=== PATIENT | male | born 1950 | race Caucasian/White ===

== ENCOUNTER 2025-03-26 07:52 | Outpatient (OUT) | payer MEDICARE, SELFPAY ==
--- OUTSIDE RECORDS SUMMARY | 2025-03-21 09:30 | XMS_ITS | Encounter Summary ---
Author Organization [facility] Address [address] [place] [address] Care Team Providers Care Woodworking Machine Operator Name Role Phone Justo Jones DO Primary Care Provider + [phone] Clive Chun MD Unavailable [phone] Erickson Mohan MD Unavailable [phone] Reason for Referral * Imaging (Routine) - Pending ReviewSpecialtyDiagnoses / ProceduresReferred By ContactReferred To ContactRadiology Diagnoses Former smoker Procedures CT lung screening low dose Nani Byrd NP [address] [place] [address] Phone: tel: fax: [facility] [address] [facility] [address] Phone: tel: fax: Referral IDStatusReasonStart DateExpiration DateVisits RequestedVisits [id number] [id number]/ Reason for Visit * ReasonComments6 Month Office Visit Encounter Details DateTypeDepartmentCare Team (Latest Contact Info)Euyjaujyqzz58/05/2025 9:30 AM ESTOffice Visit [facility] [address] [place] [phone] Nani Byrd NP [address] [place] [address] Mixed hyperlipidemia (Primary Dx); PAF (paroxysmal atrial fibrillation) (HCC); Benign prostatic hyperplasia without urinary obstruction; Former smoker; Essential hypertension; Hypovitaminosis D; Agatston coronary artery calcium score between 200 and 399; Person consulting for explanation of examination or test finding; Adult BMI 31.0-31.9 kg/sq m; JUDD (obstructive sleep apnea) Social History Tobacco UseTypesPacks/DayYears UsedDateSmoking Tobacco: XupupyOxuwaeyatt117.9 Started: 1991Smokeless Tobacco: Never Tobacco Cessation:Counseling Given: Not Answered Comments:Heavy cigarette smoker 20-39 cigs/day Alcohol UseStandard Drinks/WeekCommentsYes1 (1 standard drink = 0.6 oz pure alcohol)caffeine intake : 2-3 cups per dayAUDIT-CAnswerDate RecordedQ1: How often do you have a drink containing alcohol?2-3 times a week03/03/2024Q2: How many drinks containing alcohol do you have on a typical day when you are drinking?1 or Frequency of Binge DrinkingNot on file03/03/2024HQ-2 AnswerDate RecordedPatient Health Questionnaire-2 Sgqub707Sex and Gender InformationValueDate RecordedSex Assigned at BirthNot on fileLegal SexMale 07/29/2022 8:15 PM EDTGender IdentityNot on fileSexual OrientationNot on file 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 ATTENTION: [employer] Policy Update - Effective 10/18/24 Beginning today, our nursing team will review [employer] messages twice daily and help determine the best next steps before involving your provider. If your message requires more than a quick, simple response, a nurse will follow up to decide whether an in-person appointment is needed or if your question can be handled through secure messaging. Please note: Some more detailed or complex medical questions may result in a charge, similar to a brief office visit, if handled via [employer]. We want you to feel informed and confident when using [employer], so here are a few examples to clarify: ? No Charge (Nonbillable Messages): Medication refill requests Lab Requests Sending in provider requested data/follow-ups from visit (e.g., blood pressure, blood sugar, symptoms after treatment, report medication response) Quick questions that can be answered in a sentence or two ?? May Result in a Charge: Questions about a new medical issue that hasn???t been evaluated in the past 7 days Messages that require significant provider time, medical decision-making, or new prescriptions/orders We???re committed to keeping communication open, clear, and helpful, while ensuring you get the right care at the right time. You will be notified prior to any communication charge. Thank you for partnering with us in your health! documented in this encounter Plan of Treatment DateTypeDepartmentCare Team (Latest Contact Info)Yppxydnpaxx55/08/2026 10:00 AM EDTOffice Visit [facility] [place] [facility] [address] [place] [address] Justo Jones DO [address] [place] [address] NameTypePriorityAssociated DiagnosesOrder ScheduleCT lung screening low dose ImagingRoutine Former smoker Expected: 03/21/2025, Expires: 6CBC and differentialLabRoutine PAF (paroxysmal atrial fibrillation) (HCC) Essential hypertension Expected: 05/17/2025 (Approximate), Expires: 08/15/2025omprehensive metabolic panelLabRoutine Essential hypertension Expected: 05/17/2025 (Approximate), Expires: 08/15/2025Vitamin D 25 hydroxy TotalLabRoutine Hypovitaminosis D Expected: 05/17/2025, Expires: 08/15/2025Lipid panelLabRoutine Mixed hyperlipidemia Essential hypertension Agatston coronary artery calcium score between 200 and 399 Expected: 05/17/2025 (Approximate), Expires: 08/15/2025POLIPOPROTEIN BLab Routine Mixed hyperlipidemia Agatston coronary artery calcium score between 200 and 399 Expected: 05/17/2025 (Approximate), Expires: 08/15/2025Microalbumin / creatinine urine ratioLabRoutine Essential hypertension Expected: 05/17/2025 (Approximate), Expires: 08/15/2025documented as of this encounter Visit Diagnoses Diagnosis Mixed hyperlipidemia- Primary PAF (paroxysmal atrial fibrillation) (HCC) Atrial fibrillation Benign prostatic hyperplasia without urinary obstruction Former smoker Personal history of tobacco use, presenting hazards to health Essential hypertension Unspecified essential hypertension Hypovitaminosis D Unspecified vitamin D deficiency Agatston coronary artery calcium score between 200 and 399 Person consulting for explanation of examination or test finding Adult BMI 31.0-31.9 kg/sq m Body Mass Index 31.0-31.9, adult JUDD (obstructive sleep apnea) Obstructive sleep apnea (adult) (pediatric) documented in this encounter Additional Health Concerns AssessmentNoted TimePHQ-9 Depression Total Score: 9:00 AM EDT documented as of this encounter Care Teams Team MemberRelationshipSpecialtyStart DateEnd Date Justo Jones DO [address] [place] [address] PCP - GeneralInternal Medicine11/24/22 Clive Chun MD [address] [facility] [address] [place] [address] Referring PhysicianCardiology08/27/23 Erickson Mohan MD [address] [place] [address] Referring PhysicianUrology08/27/23documented as of this encounter
--- OUTSIDE RECORDS SUMMARY | 2025-03-26 07:59 | XMS_ITS | Encounter Summary ---
Author Organization [facility] Address [address] [place] [address] Care Team Providers Care Business Process Engineer Name Role Phone Justo Jones DO Primary Care Provider + [phone] Clive Chun MD Unavailable [phone] Erickson Mohan MD Unavailable [phone] Encounter Details DateTypeDepartmentCare Team (Latest Contact Info)Prrejskdnsq62/05/2025Travel Social History Tobacco UseTypesPacks/DayYears UsedDateSmoking Tobacco: AnjyrmUiecfbnigo040.9 Started: 1991Smokeless Tobacco: Never Comments:Heavy cigarette smo ker 20-39 cigs/day Alcohol UseStandard Drinks/WeekCommentsYes1 (1 standard drink = 0.6 oz pure alcohol)caffeine intake : 2-3 cups per dayAUDIT-CAnswerDate RecordedQ1: How often do you have a drink containing alcohol?2-3 times a week03/03/2024Q2: How many drinks containing alcohol do you have on a typical day when you are drinking?1 or Frequency of Binge DrinkingNot on file03/03/2024HQ-2 AnswerDate RecordedPatient Health Questionnaire-2 Wroma822Sex and Gender InformationValueDate RecordedSex Assigned at BirthNot on fileLegal SexMale 07/29/2022 8:15 PM EDTGender IdentityNot on fileSexual OrientationNot on file 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 on 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 on fileNot on filedocumented as of this encounter Plan of Treatment DateTypeDepartmentCare Team (Latest Contact Info)Kiwkkjgtrjd09/08/2026 10:00 AM EDTOffice Visit [facility] [address] [place] [phone] Justo Jones DO [address] [place] [address] documented as of this encounter Visit Diagnoses Not on filedocumented in this encounter Additional Health Concerns AssessmentNoted TimePHQ-9 Depression Total Score: 9:00 AM EDT documented as of this encounter Care Teams Team MemberRelationshipSpecialtyStart DateEnd Date Justo Jones DO [address] [facility] [address] [place] [address] PCP - GeneralInternal Medicine11/24/22 Clive Chun MD [address] [facility] [address] [place] [address] Referring PhysicianCardiology08/27/23 Erickson Mohan MD [address] [facility] [place] [address] Referring PhysicianUrology08/27/23documented as of this encounter
--- OUTSIDE RECORDS SUMMARY | 2025-03-26 07:59 | XMS_ITS | Clinical Summary ---
Author Organization [facility] Address [address] [place] [address] Care Team Providers Care Clinic Lead Name Role Phone Justo Jones Primary Care Provider Allergies No known active allergies Medications MedicationSigDispense QuantityRefillsLast FilledStart DateEnd DateStatus atorvastatin (LIPITOR) 10 mg tablet Take 10 mg by mouth once daily.05/11/2019Active hydrOXYzine pamoate (VISTARIL) 25 mg capsule Take 25 mg by mouth daily at bedtime.12/05/2023ctive rivaroxaban (XARELTO) 20 mg tablet Take 20 mg by mouth once daily.05/11/2019Active finasteride (PROSCAR) 5 mg tablet Take 5 mg by mouth.05/13/2020Active flecainide (TAMBOCOR) 50 mg tablet Take 50 mg by mouth.05/13/2020Active tamsulosin (FLOMAX) 0.4 mg Take 0.4 mg by mouth every 12 hours.05/13/2020Active triamcinolone acetonide (KENALOG) 0.1 % cream Apply 1 application to affected area two times a day. May use up to 5 days, then break for 2 days. Repeat cycle as needed. 453.6 g ctive cetirizine (ZYRTEC) 10 mg tablet Take 2 tablets by mouth every afternoon. 60 tablet 01/05/2024ctive Social History Tobacco UseTypesPacks/DayYears UsedDateSmoking Tobacco: Never AssessedArea Deprivation IndexAnswerDate RecordedNational Score (1-100), lower number is lower qglu821012/24/2023State Score (1-10), lower number is lower xwfw160 Data from: https://www.neighborhoodatlas.medicine.[facility].edu/. Last address used for cadhruppkoj[address]12/24/2023Sex and Gender InformationValue Date RecordedSex Assigned at BirthNot on fileLegal GzuXkcu4510/27/2022 11:02 AM EDTGender IdentityNot on fileSexual OrientationNot on file Plan of Treatment Health MaintenanceDue DateLast DoneCommentsAnxiety Rpluboxvk91/07/1969Depression Iaozegxcy24/07/1969Hepatitis C Xmcqsvzsn04/07/1969DTaP,Tdap,Td Vaccine (1 - Tdap)1969Lipid Ciendilki63/07/1986CT Cckvtrsofyoz38/07/1996Colonoscopy 10/22/1995Diabetes Eqtnhtnna63/07/1996Fecal Occult Blood10/22/1995Sigmoidoscopy 10/22/1995Cologuard (FIT-DNA)Colorectal Cancer Screening 10/25/2020dvance Directive Rzmfxeyuzu00/01/2025Medicare Advantage Annual Wellness Visit05/17/2024ovid-19 Vaccine ( season)2025 05/04/2023, 05/25/2022, 08/27/2021, Additional history existsInfluenza Vaccine (#1)512/, 05/25/2022, 04/16/2021, Additional history exists Pneumococcal Vaccine: 50+Qmrslmbvq85/10/2020, 09/06/2018, 10/05/2017RSV Vaccine Yikyuumvp76/09/2024Shingrix QjkbonvRxpbptxvs23/09/2024, 05/11/2023 Insurance Care Teams Team MemberRelationshipSpecialtyStart DateEnd Date Justo Jones DO [address] [facility] [address] [place] [address] PCP - GeneralInternal Medicine12/21/23
--- OUTSIDE RECORDS SUMMARY | 2025-03-26 07:59 | XMS_ITS | Clinical Summary ---
Author Organization [facility] Address [address] [place] [address] Care Team Providers Care Cfo Name Role Phone Keny Carney DO Primary Care Provider [phone] Allergies No known active allergies Medications MedicationSigDispense QuantityRefillsLast FilledStart DateEnd DateStatus traMADol (ULTRAM) 50 mg tablet Take 1 tablet (50 mg total) by mouth every 6 (six) hours as needed for pain. 15 tablet ctive Social History Tobacco UseTypesPacks/DayYears UsedDateSmoking Tobacco: FormerAlcohol Use Standard Drinks/WeekCommentsYes0 (1 standard drink = 0.6 oz pure alcohol) occassionallySex and Gender InformationValueDate RecordedSex Assigned at Not on fileLegal ZvnQhil0209/08/2013 11:12 AM EDTGender IdentityNot on fileSexual OrientationNot on file Last Filed Vital Signs Vital SignReadingTime TakenCommentsBlood Mgekpmek399/7710 1:43 AM EDT Nojaf326802/27/2015 1:43 AM XAFIghthbrwudb20.7 ??C (98.1 ??F)02/26/2015 10:43 PM EDTRespiratory Yxya8582 1:43 AM EDTOxygen Lgmystcngd02%02/27/2015 1:43 AM EDTInhaled Oxygen Concentration--Eznfit47.1 kg (218 lb 6.4 oz)02/26/2015 10:43 PM DUEBvzqkn451.3 cm (5' 11 )02/26/2015 10:43 PM EDTBody Mass Index30.46 02/26/2015 10:43 PM EDT Plan of Treatment Not on file Insurance Care Teams Team MemberRelationshipSpecialtyStart DateEnd Date Keny Carney DO [address] [place] [phone] PCP - Nkqqyif71/2/12
--- OUTSIDE RECORDS SUMMARY | 2025-03-26 07:59 | XMS_ITS | Clinical Summary ---
Author Organization [facility] Address [address] [place] [address] Phone Care Team Providers Care Professor Of Environmental Science Name Role Phone Justo Jones DO Primary Care Provider Allergies No known active allergies Medications MedicationSigDispense QuantityRefillsLast FilledStart DateEnd DateStatus flecainide (Tambocor) 50 mg tablet Indications:Persistent atrial fibrillation (Multi)TAKE 1 TABLET BY MOUTH EVERY 12 HOURS 180 tablet 3Active finasteride (Proscar) 5 mg tablet Take 1 tablet (5 mg) by mouth once daily.Active tamsulosin (Flomax) 0.4 mg 24 hr capsule Take 1 capsule (0.4 mg) by mouth once daily.Active multivitamin tablet Take 1 tablet by mouth once daily.Active atorvastatin (Lipitor) 10 mg tablet Indications:Mixed hyperlipidemiaTAKE 1 TABLET BY MOUTH ONCE DAILY AT BEDTIME 90 tablet 5Active rivaroxaban (Xarelto) 20 mg tablet Indications:Persistent atrial fibrillation (Multi)Take 1 tablet (20 mg) by mouth once daily. 90 tablet 5Active Active Problems ProblemNoted DateDiagnosed DateOther sleep apnea01/11/2025Never smoked tobacco 01/10/20247755Jxqywajlrsipuy29/17/2023Mild CAD04/02/2023Obesity (BMI 30-39.9) 04/02/20237814Ejythqmfovab76/17/2023ersistent atrial gmhizkrqwwxs76/17/2023Sinus webcrkencxi75/17/2023Long term current use of anticoagulant qifoopg5204/02/2023 Essential ylpinewsblfv47/17/2023 Resolved Problems ProblemNoted DateDiagnosed DateResolved DateEchocardiogram dfvoreim68/17/2023 07/12/2024 Encounters DateTypeDepartmentCare GfzzYyqwlzwtbou88/28/2025 3:00 PM EDTOffice Visit [address] [address] Clive Chun MD Persistent atrial fibrillation (Multi) (Primary Dx); Essential hypertension; Sinus bradycardia; 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; Palpitations; Mild CAD; Mixed hyperlipidemia; Obesity (BMI 30-39.9); Never smoked tobacco; Other sleep apnea Discharge Disposition: Home01/11/2025Travelfrom Last 3 Months Social History Tobacco UseTypesPacks/DayYears UsedDateSmoking Tobacco: FormerCigarettesQuit: 2004Smokeless Tobacco: Never Tobacco Cessation:Counseling Given: Not Answered Alcohol UseStandard Drinks/WeekCommentsYes0 (1 standard drink = 0.6 oz pure alcohol)socialSex and Gender InformationValueDate RecordedSex Assigned at Not on fileLegal QyxQgnk63/26/2022 8:45 PM ESTGender IdentityNot on fileSexual OrientationNot on file Last Filed Vital Signs Vital SignReadingTime TakenCommentsBlood Scuregga419/70001/11/2025 2:48 PM EDT Tdlki186801/11/2025 2:48 PM EDTTemperature--Respiratory Rate--Oxygen Saturation-- Inhaled Oxygen Concentration--Lkimma536 kg (226 lb)01/11/2025 2:48 PM EDTHeight 180.3 cm (5' 11 )01/11/2025 2:48 PM EDTBody Mass Index31.52001/11/2025 2:48 PM EDT Plan of Treatment DateTypeDepartmentCare Team (Latest Contact Info)Isooefugbre85/14/2026 3:20 PM EDTOffice Visit [address] [address] Clive Chun MD [address] [place] [address] [address] [place] [address] Health MaintenanceDue DateLast DoneCommentsCT Lvsejgpjwqeg71/07/1951FIT-DNA (Cologuard)1950FIT1950Medicare Annual Wellness Visit (AWV)1950 Guamlzabfnfkg08/07/1951MMR Vaccines (1 of 1 - Standard series)2Diabetes Eydehdqiq37/07/1969Hepatitis C Vqebffsat35/07/1969DTaP/Tdap/Td Vaccines (1 - Tdap)1972Abdominal Aortic Aneurysm (AAA) Eydzeqhns97/07/2016Influenza Vaccine (#1)/, 05/04/2023, 05/25/2022, Additional history existsCOVID-19 Vaccine ( season)/, 05/25/2022, 08/27/2021, Additional history existsLipid Panel/olonoscopy , 12/09/2017Colorectal Cancer Cvebnpmao99/26/2034Hepatitis B MdexecrhGlrkdxlzh60/31/2001, 04/19/2000, 03/12/2000Pneumococcal VaccineCompleted 03/26/2020, 09/06/2018, 10/05/2017RSV High Risk: (Elderly (60+) or Population)Cqgvbygch85/09/2024Zoster IrfkmlulLldpbshmp82/09/2024, 05/11/2023HIB VaccinesAged OutNo longer eligible based on patient's age to complete this topic HPV VaccinesAged OutNo longer eligible based on patient's age to complete this topicHepatitis A VaccinesAged OutNo longer eligible based on patient's age to complete this topicIPV VaccinesAged OutNo longer eligible based on patient's age to complete this topicMeningococcal VaccineAged OutNo longer eligible based on patient's age to complete this topicRotavirus VaccinesAged OutNo longer eligible based on patient's age to complete this topic Procedures Procedure NamePriorityDate/TimeAssociated DiagnosisCommentsECG 12-LEADRoutine 01/11/2025 3:00 PM EDT Sinus bradycardia from Last 3 Months Results * ECG 12 Lead (01/11/2025 3:00 PM EDT)Specimen (Source)Anatomical Location / LateralityCollection Method / VolumeCollection TimeReceived Time Narrative CPACS - 01/11/2025 3:14 PM EDT Mild sinus bradycardia with criteria for left hypertrophy and nonspecific ST-T changes Authorizing ProviderResult TypeResult StatusMourhaf Traboulssi MDECG ORDERABLES Final ResultPerforming OrganizationAddressCity/State/ZIP CodePhone Number CPACS from Last 3 Months Insurance Care Teams Team MemberRelationshipSpecialtyStart DateEnd Date Justo Jones DO [address] [facility] [address] [place] [address] PCP - GeneralInternal Medicine01/10/24
--- OUTSIDE RECORDS SUMMARY | 2025-03-26 07:59 | XMS_ITS | Clinical Summary ---
Author Organization [facility] Address [address] [place] [address] Care Team Providers Care Rouge Sifter And Miller Name Role Phone Justo Jones DO Primary Care Provider + [phone] Clive Chun MD Unavailable [phone] Erickson Mohan MD Unavailable [phone] Allergies No known active allergies Medications MedicationSigDispense QuantityRefillsLast FilledStart DateEnd DateStatus atorvastatin (Lipitor) 10 MG tablet Indications:Mixed hyperlipidemiaTake 1 tablet (10 mg) by mouth at bedtime 5Active finasteride (Proscar) 5 MG tablet Indications:Benign prostatic hyperplasia without urinary obstructionTake 1 tablet (5 mg) by mouth 1 (one) time each day at the same time5Active flecainide (Tambocor) 50 MG tablet Indications:PAF (paroxysmal atrial fibrillation) (HCC)Take 1 tablet (50 mg) by mouth in the morning and 1 tablet (50 mg) before bedtime.5Active rivaroxaban (Xarelto) 20 MG tablet Indications:PAF (paroxysmal atrial fibrillation) (HCC)Take 1 tablet (20 mg) by mouth in the evening. Take with meals5Active tamsulosin (Flomax) 0.4 MG 24 hr capsule Indications:Benign prostatic hyperplasia without urinary obstructionTake 2 capsules (0.8 mg) by mouth Daily5Active tamsulosin (Flomax) 0.4 MG 24 hr capsule Take 0.8 mg by mouth DailyDiscontinued(Reorder) rivaroxaban (Xarelto) 20 MG tablet Take 20 mg by mouth.Discontinued(Reorder) finasteride (Proscar) 5 MG tablet Take 5 mg by mouth 1 (one) time each day at the same time. Discontinued(Reorder) flecainide (Tambocor) 50 MG tablet Take 50 mg by mouth in the morning and 50 mg before bedtime. Discontinued(Reorder) atorvastatin (Lipitor) 10 MG tablet Take 10 mg by mouth at bedtime.Discontinued(Reorder) Active Problems ProblemNoted DateDiagnosed DateThoracic aorta qlauwypiyjlulgs67/27/2024Essential uutszydgludg00/17/2023Long term current use of anticoagulant jlopimw0004/02/2023 Avchhupxysgwgm41/17/2023ortic valve maafscpee74/11/2023enign prostatic hyperplasia without urinary uiqkfguekhc82/11/2023iastasis of rectus abdominis 11/24/2022Former phcape0411/24/2022History of chronic lung rgwmjmk1711/24/2022 History of kidney hfuabe5611/24/2022Left ventricular ubkplofiuxt18/11/2023Mixed lbdaswsnvuvbmn39/11/2023Multiple rfwcpkq4511/24/2022Obesity (BMI 30-39.9) 11/24/2022AF (paroxysmal atrial fibrillation)11/24/2022Multiple nodules of lung 11/24/2022Reactive airway hnqihwn7411/24/2022Tubular uvltfet3411/24/2022 Overview (11/15/2023): 6 in 2023 Agatston coronary artery calcium score between 200 and 4090311/23/1904 Resolved Problems ProblemNoted DateDiagnosed DateResolved DateAngiomyolipoma of zpvsai3506/12/2023 06/12/20232768Mscygupcoiprzoq11/27/202407/Mild CAD/ Persistent atrial jhlyfumvtajs96/17/202307/4248Kmptjydqp13/11/202307/ Esophageal xmxzzfrxx61Heart Hesitancy of wherluttoiv01Hip flexor mvtdbaejh83/11/2023 12/01/2023Gross ojujofvji50Kidney uhhgzz37 Wkcwhrklfvvf01ulmonary xnyahq06Olecranon bursitis of right elbow Assessment & Plan (11/24/2022 4:04 PM EDT): No systemic symptoms like fevers or chills. Reports he was given an antibiotic maybe a month ago bythe shield cleaner for concern of infection in this arm. When fluid drawn, pus appeared in addition to yellow serous fluid. He will return in 1 week for a recheck. If needs drawn off again, consider referral to an orthopedic. Current use of alf yctsolmrjlhpdmx14Hx of chronic eczema ellulitis of elbow Encounters DateTypeDepartmentCare YjdiZlbetttiokp75/05/2025 9:30 AM ESTOffice Visit [facility] [address] [place] [phone] Nani Byrd, LEO Mixed hyperlipidemia (Primary Dx); PAF (paroxysmal atrial fibrillation) (HCC); Benign prostatic hyperplasia without urinary obstruction; Former smoker; Essential hypertension; Hypovitaminosis D; Agatston coronary artery calcium score between 200 and 399; Person consulting for explanation of examination or test finding; Adult BMI 31.0-31.9 kg/sq m; JUDD (obstructive sleep apnea)03/21/20251422Acvmtu31/01/2025Orders Only [facility] [address] [place] [phone] Unallocated, Renee Phipps MD 02/13/2025Orders Only [facility] [address] [place] [phone] Unallocated, Renee Phipps MD 01/09/2025Telephone [facility] [address] [place] [address] Evangelina Sexton MA Sleep Studyfrom Last 3 Months Immunizations ImmunizationAdministration DatesNext DueABRYSVO - Respiratory syncytial virus (RSV), vaccine, bivalent, protein subunit RSV prefusion F, diluent reconstituted, 0.5 mL, PF08/24/2023Hep B, adult10/14/2000,04/19/2000,03/12/2000 Influenza, High Dose Seasonal, Preservative Free03/08/2025,03/13/2018,05/27/2017 Influenza, High-dose Seasonal, Quadrivalent, Preservative Free05/25/2022 Influenza, Seasonal, Quadrivalent, Juxbthifps37/19/2023Influenza, Unspecified 05/04/2023Influenza, injectable, quadrivalent, preservative free02/20/2020 Influenza, seasonal, ydpiyrrdvz01/01/2020,04/22/2015,04/14/2015Influenza, seasonal, injectable, preservative free02/25/2014Influenza, trivalent, vkipfjursx52/18/2024Moderna SARS-CoV-2 Syfefolkppr90/19/2021Pfizer Purple Cap SARS-CoV-2 Mzthlvkzyyh83/19/2021neumococcal Conjugate PCV Pneumococcal Polysaccharide VJFQ102005/26/2019RSV IGIV08/24/2023Zoster, Ugbrpuztfau96/09/2024,05/11/2023 Family History Medical HistoryRelationNameCommentsDementiaFatherStrokeFatherDementiaMother StrokeMotherRelationNameStatusCommentsDaughterAlive2 daughtersFatherDeceased MotherDeceasedSister2 sistersSonAlive1 sons Social History Tobacco UseTypesPacks/DayYears UsedDateSmoking Tobacco: KvhtkrWfxozjukou696.9 Started: 1991Smokeless Tobacco: Never Tobacco Cessation:Counseling Given: [...] DrinkingNot on file03/03/2024HQ-2 AnswerDate RecordedPatient Health Questionnaire-2 Lzpir116Sex and Gender InformationValueDate RecordedSex Assigned at BirthNot on fileLegal SexMale 07/29/2022 8:15 PM EDTGender IdentityNot on fileSexual OrientationNot on file 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 on fileNot on fileNot on file Last Filed Vital Signs Vital SignReadingTime TakenCommentsBlood Jyvkatpc570/7003/21/2025 8:56 AM EST Jqhzh805503/21/2025 8:56 AM ESTTemperature--Respiratory Rate--Oxygen Thutowwjjg98% 03/21/2025 8:56 AM ESTInhaled Oxygen Concentration--Mcaygi423 kg (229 lb) 03/21/2025 8:56 AM KUMHxamjk194.3 cm (5' 11 )03/21/2025 8:56 AM ESTBody Mass Index31.9403/21/2025 8:56 AM EST Plan of Treatment DateTypeDepartmentCare Team (Latest Contact Info)Qydqfehmhlf99/08/2026 10:00 AM EDTOffice Visit [facility] [address] [place] [address] Justo Jones, [address] [place] [address] Health MaintenanceDue DateLast DoneCommentsCT Asqieoyncpuz76/07/1951FIT 1950FOBT1950 6828Ikweibgzxqfod99/07/1951FIT-DNALung Cancer Screening Shared Decision Bgwovd4205/17/2025Postponed from 1950 (Other System Reasons)Medicare Annual Wellness (AWV)604/ Oytnogrliuk71/26/203406/, 12/09/2017Colorectal Cancer Kteuqyavr60/26/2034 Pneumococcal Vaccine: 65+ RnjvlPbrznsorm20/10/2020, 10/05/2017COVID-19 Vaccine Efheoamdixvb93/19/2023, 08/27/2021, 03/10/2021, Additional history exists Influenza PjpwpdeInnfuegkl88/23/2025, 03/03/2024, 05/04/2023, Additional history exists Procedures Procedure NamePriorityDate/TimeAssociated DiagnosisCommentsXR ABDOMEN 1 VIEW Puabekb2102/12/2025 1:31 PM EDTPSA, RTXHBWfgwdyz75/29/2025 10:05 AM EDTHM QUNRWXQJDBTZeeggfe93/26/2024 3:39 PM EDTfrom Last 3 Months or Most Recently Relevant to Health Maintenance Results * XR abdomen 1 view (02/12/2025 1:31 PM EDT)Anatomical RegionLateralityModality AbdomenRadiographic Imaging Narrative Authorizing ProviderResult TypeResult StatusNoms Provider Unallocated MDIMG XR PROCEDURESFinal Result * PSA (02/12/2025 10:05 AM EDT)Specimen (Source)Anatomical Location / Laterality Collection Method / VolumeCollection TimeReceived TimeBloodVenous blood specimen / Unknown Narrative Authorizing ProviderResult TypeResult StatusNoms Provider Unallocated MDLAB BLOOD ORDERABLESFinal Result * Hm Colonoscopy (11/10/2023 3:39 PM EDT)Anatomical RegionLateralityModality Other Narrative Authorizing ProviderResult TypeResult StatusUnknown Practice [facility]TENANCE Final Result from Last 3 Months or Most Recently Relevant to Health Maintenance Insurance Advance Directives * Full Code (Latest Code Status on File) Date ActivatedDate InactivatedComments09/03/2023 10:34 AM Care Teams Team MemberRelationshipSpecialtyStart DateEnd Date Justo Jones DO [address] [place] [address] PCP - GeneralInternal Medicine11/24/22 Clive Chun MD [facility] [facility] [place] [address] Referring PhysicianCardiology08/27/23 Erickson Mohan MD [address] [place] [address] Referring PhysicianUrology08/27/23
[2025-03-26 08:46] LABS: Hematocrit 41.5 % (42.0-54.0); Hemoglobin 14.5 g/dL (14.0-18.0); Immature Granulocytes Abs Auto 0.02 10^3/uL (0.00-0.03); Immature Granulocytes Pct Auto 0.4 % (0.0-0.5); Lymphocytes Absolute Auto 1.4 10^3/uL (1.2-3.8); Mean Corpuscular HGB Conc 34.9 g/dL (29.9-35.2); Mean Corpuscular Hemoglobin 31.5 pg (25.9-34.0); Mean Corpuscular Volume 90.0 fL (80.0-94.0); Platelet Count 179 10^3/uL (150-450); Red Blood Count 4.61 10^6/uL (4.70-6.10); White Blood Count 5.6 10^3/uL (4.0-11.0)
--- NOTE | 2025-03-26 08:48 | PM.PRESUREVA ---
History of Present Illness History of Present Illness Chief complaint: LEFT KIDNEY STONE Narrative: Patient presents for presurgical testing. The patient has a known left-sided kidney stone that has been monitored, and he states it doubled in size within the past year and he is now scheduled for prophylactic surgical intervention. The patient denies any urinary complaints at this time. He has no flank pain, abdominal pain, nausea, vomiting, fever, dysuria, hematuria, or any other complaints. Review of Systems ROS Narrative REVIEW OF SYSTEMS: Negative except as stated in HPI, ten or more systems reviewed. Constitutional: No fever, chills, weakness ENT: No sore throat or epistaxis Cardiovascular: No chest pain or palpitations Respiratory: No shortness of breath, cough, or wheezing Musculoskeletal: No joint pain or swelling Gastrointestinal: No abdominal pain, constipation, diarrhea, or vomiting Genitourinary: No dysuria or hematuria Neurological: No numbness, tingling, weakness, or headache Psychiatric: No mood changes PFSH PFS Medical History (Updated 03/26/25 @ 08:47 by Shayy Dean NP) Colon polyp ?K63.5 - Polyp of colon (ICD-10) BPH with obstruction/lower urinary tract symptoms ?N40.1 - Benign prostatic hyperplasia with lower urinary tract symptoms (ICD-10) ?N13.8 - Other obstructive and reflux uropathy (ICD-10) Anticoagulated ?Z79.01 - remote computer terminal operator (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) use of anticoagulants (ICD-10) Arthritis ?M19.90 - Unspecified osteoarthritis, unspecified site (ICD-10) Sleep apnea ?G47.30 - Sleep apnea, unspecified (ICD-10) Kidney stones ?N20.0 - Calculus of kidney (ICD-10) Extremity edema ?R60.0 - Localized edema (ICD-10) Atrial fibrillation ?I48.91 - Unspecified atrial fibrillation (ICD-10) History of cardioversion ?Z92.89 - Personal history of other medical treatment (ICD-10) S/P extracorporeal shock wave therapy ?Z98.890 - Other specified postprocedural states (ICD-10) Surgical History (Updated 03/26/25 @ 08:47 by Shayy Dean NP) S/P colon polypectomy ?Z98.890 - Other specified postprocedural states (ICD-10) ?Z86.0100 - Personal history of colon polyps, unspecified (ICD-10) History of colonoscopy ?Z98.890 - Other specified postprocedural states (ICD-10) S/P TURP ?Z90.79 - Acquired absence of other genital organ(s) (ICD-10) S/P ureteral stent placement ?Z96.0 - Presence of urogenital implants (ICD-10) S/P cystoscopy ?Z98.890 - Other specified postprocedural states (ICD-10) Family History (Updated 03/26/25 @ 08:33 by Shayy Dean NP) Other Family history of Alzheimer's disease Social History (Updated 03/26/25 @ 08:24 by Shayy Dean NP) Within the past year, how often did you have a drink containing alcohol: 2-3 times a week Smoking status: Former smoker Non-prescribed substance use: denies use Highest level of school completed/degree received: high school graduate Meds Home Medications and Allergies Home Medications ?Medication ?Instructions ?Recorded ?Confirmed ?Type atorvastatin 10 mg tablet 10 mg PO DAILY 03/26/25 03/26/25 History finasteride 5 mg tablet 5 mg PO DAILY 03/26/25 03/26/25 History flecainide 50 mg tablet 50 mg PO Q12H 03/26/25 03/26/25 History rivaroxaban 20 mg tablet (Xarelto) 20 mg PO DAILY 03/26/25 03/26/25 History tamsulosin 0.4 mg capsule 0.4 mg PO BID 03/26/25 03/26/25 History Allergies Allergy/AdvReac Type Severity Reaction Status Date / Time No Known Drug Allergies Allergy Verified 03/26/25 08:18 Exam Narrative Exam Narrative: Constitutional: Awake, alert, comfortable, well-appearing, nontoxic, interactive, vital signs as charted Head: Normocephalic, atraumatic Neck: Supple, normal appearance, normal range of motion, no meningeal signs, no lymphadenopathy Respiratory: No respiratory distress, breath sounds clear Cardiovascular: Regular rate and rhythm, strong and regular heart tones Abdomen: Nontender, normal bowel sounds, soft, no CVA tenderness Musculoskeletal: Normal gait, no swelling or edema Skin: No rashes or induration, no lesions, only visible skin inspected Neuro: No neurological deficits, normal sensation Psychiatric: Oriented ?3, normal affect Assessment and Plan Assessment and Plan (1) Kidney stones: Plan Cystoscopy, left retrograde, left ureteroscopy, laser, possible left stent placement scheduled with Dr. Mohan April 05, 2025.
[2025-03-26 09:09] LABS: INR 1.14; Partial Thromboplastin Time 33.7 sec (22.3-36.2); Prothrombin Time 11.9 sec (9.0-11.6)
[2025-03-26 09:49] LABS: Anion Gap 11.6; Blood Urea Nitrogen 19.0 mg/dL (7.0-18.0); Calcium 8.6 mg/dL (8.5-10.1); Carbon Dioxide 28.6 mmol/L (21.0-32.0); Chloride 105 mmol/L (98-107); Estimated GFR (African America >60 (>=60 mL/min/1.73m^2); Estimated GFR (Non-African Ame >60 (>=60 mL/min/1.73m^2); Glucose 128 mg/dL (74-106); Potassium 4.2 mmol/L (3.5-5.1); Sodium 141 mmol/L (136-145)
== END 2025-03-26 07:53 | disposition home or self-care (01) ==
LOC: PST 07:57
PROVIDERS: PCP Internal Medicine; Visit Provider Urology
DX: Z01.812 Encounter for preprocedural laboratory examination (principal); Z01.818 Encounter for other preprocedural examination; N20.0 Calculus of kidney
CPT/HCPCS: 36415; 80048; 85025; 85610; 85730; G0463

== ENCOUNTER 2025-04-05 06:51 | Day surgery (SDC) | payer MEDICARE, SELFPAY ==
[2025-03-26 08:41] VITALS: BP 148/77; PULSE 60; TEMP 36.3; O2SAT 97; BMI 31.1
[2025-04-05] VITALS (11 sets, daily range): BP systolic 108–168; BP diastolic 61–83; PULSE 50–61; TEMP 36.3–36.8; O2SAT 91–98; BMI 23.3
--- OUTSIDE RECORDS SUMMARY | 2025-04-05 06:56 | XMS_ITS | Encounter Summary ---
Author Organization [facility] Address [address] [place] [address] Phone Care Team Providers Care Car Varnisher Name Role Phone Justo Jones Primary Care Provider Reason for Visit * ReasonOnset MsxoGofniyrvBXX30/11/2025 Encounter Details DateTypeDepartmentCare Team (Latest Contact Info)Exteqdcvtyo25/11/2025Telephone [facility] [address] [address] Honey Fairchild LPN POC Social History Tobacco UseTypesPacks/DayYears UsedDateSmoking Tobacco: FormerCigarettesQuit: 2004Smokeless Tobacco: NeverAlcohol UseStandard Drinks/WeekCommentsYes0 (1 standard drink = 0.6 oz pure alcohol)socialSex and Gender InformationValueDate RecordedSex Assigned at BirthNot on fileLegal EmcWmtn38/26/2022 8:45 PM EST Gender IdentityNot on fileSexual OrientationNot on filedocumented as of this encounter Miscellaneous Notes * Telephone Encounter - Maria Eugenia Roach LPN - 04/02/2025 1:53 PM EST Phone call from Dr. Mohan office requesting POC, did not receive it before. Orders discussed verbalized understanding, orders printed and faxed. * Telephone Encounter - Mabel Mendoza LPN - 03/27/2025 1:51 PM EST Printed and faxed. Left vm with Ave at Dr. Cummins's office advising. * Telephone Encounter - Honey Fairchild LPN - 03/27/2025 10:17 AM EST Call from Ave with Dr. Mohan' office requesting cardiac clearance, and approval to proceed with laser treatment under general anesthesia for kidney stone removal at [facility]. Also requesting Xarelto hold 2-3 days prior to procedure. (P) [phone] (F) [phone] documented in this encounter Plan of Treatment DateTypeDepartmentCare Team (Latest Contact Info)Wbyicurmyde07/14/2026 3:20 PM EDTOffice Visit [facility] [address] [facility] [address] [place] [phone] Clive hCun MD [address] [facility] [place] [address] documented as of this encounter Visit Diagnoses Not on filedocumented in this encounter Additional Health Concerns AssessmentNoted TimeA fall risk assessment has been completed for the patient 07/12/2024 1:46 PM ESTdocumented as of this encounter Care Teams Team MemberRelationshipSpecialtyStart DateEnd Date Justo Jones DO [address] [place] [address] PCP - GeneralInternal Medicine01/10/24documented as of this encounter
--- OUTSIDE RECORDS SUMMARY | 2025-04-05 06:56 | XMS_ITS | Clinical Summary ---
Author Organization [facility] Healthcare Address [address] [place] [address] Care Team Providers Care Plasterer Spray Gun Name Role Phone Justo Jones DO Primary Care Provider + [phone] Clive Chun MD Unavailable [phone] Erickson Mohan MD Unavailable +[phone] Allergies No known active allergies Medications MedicationSigDispense [...] bedtime.Discontinued(Reorder) Active Problems ProblemNoted DateDiagnosed DateThoracic aorta wqvntcponmkxmzo85/27/2024Essential xahxqndprqgo82/17/2023Long term current use of anticoagulant vpurqjt1604/02/2023 Egqsddrevsovcg86/17/2023ortic valve stafsqghb25/11/2023enign prostatic hyperplasia without urinary jkpjkfhxgap53/11/2023iastasis of rectus abdominis 11/24/2022Former xoassn1111/24/2022History of chronic lung kbkmdvv9911/24/2022 History of kidney zqgwex1111/24/2022Left ventricular /11/2023Mixed ttfgussecqrdnd63/11/2023Multiple isiqgcc3611/24/2022Obesity (BMI 30-39.9) 11/24/2022AF (paroxysmal atrial fibrillation)11/24/2022Multiple nodules of lung 11/24/2022Reactive airway qdzqkxu6011/24/2022Tubular qxbbvcq1211/24/2022 Overview (11/15/2023): 6 in 2023 Agatston coronary artery calcium score between 200 and 6838211/23/1904 Resolved Problems ProblemNoted DateDiagnosed DateResolved DateAngiomyolipoma of jrfexo2906/12/2023 06/12/20234234Kbrojhbvvzpbhnv23/27/202407/Mild CAD/ Persistent atrial khlbanqcrbra98/17/202307/0140Pwphxqgvr35/11/202307/ Esophageal qimkardqb99Heart exlpkz80 Hesitancy of eqfvhawsjxj75Hip flexor rbbqyamlu86/11/2023 12/01/2023Gross yayguzyco49Kidney Rsrgaxnodatj77ulmonary ncqqsk97Olecranon bursitis of right elbow Assessment & Plan (11/24/2022 4:04 PM EDT): No systemic symptoms like fevers or chills. Reports he was given an antibiotic maybe a month ago bythe asbestos wire finisher for concern of infection in this arm. When fluid drawn, pus appeared in addition to yellow serous fluid. He will return in 1 week for a recheck. If needs drawn off again, consider referral to an orthopedic. Current use of longterm jlwfkdvumyqrggp96Hx of chronic eczema ellulitis of elbow Encounters DateTypeDepartmentCare NpkuJlbrlexjote74/10/2025Clinisync Result Encounter [facility] External Department Unsolicited Provider, [place] External Data 03/21/2025 9:30 AM ESTOffice Visit [facility] [address] [place] [phone] Nani Byrd NP Mixed hyperlipidemia (Primary Dx); PAF (paroxysmal atrial fibrillation) (HCC); Benign prostatic hyperplasia without urinary obstruction; Former smoker; Essential hypertension; Hypovitaminosis D; Agatston coronary artery calcium score between 200 and 399; Person consulting for explanation of examination or test finding; Adult BMI 31.0-31.9 kg/sq m; JUDD (obstructive sleep apnea)03/21/20251450Cdvbsy58/01/2025Orders Only [facility] [address] [place] [address] Unallocated, Renee Phipps MD 02/13/2025[facility]ders [facility] [address] [place] [phone] Unallocated, Renee Phipps MD 01/09/2025Telephone [facility] [place] [facility] [address] [place] [phone] Evangelina Sexton MA Sleep Studyfrom Last 3 Months Immunizations ImmunizationAdministration DatesNext DueABRYSVO - Respiratory syncytial virus (RSV), vaccine, bivalent, protein subunit RSV prefusion F, diluent reconstituted, 0.5 mL, PF08/24/2023Hep B, adult10/14/2000,04/19/2000,03/12/2000 Influenza, High Dose Seasonal, Preservative Free03/08/2025,03/13/2018,05/27/2017 Influenza, High-dose Seasonal, Quadrivalent, Preservative Free05/25/2022 Influenza, Seasonal, Quadrivalent, Lojkljjyfa58/19/2023Influenza, Unspecified 05/04/2023Influenza, injectable, quadrivalent, preservative free02/20/2020 Influenza, seasonal, bwotxmurvr00/01/2020,04/22/2015,04/14/2015Influenza, seasonal, injectable, preservative free02/25/2014Influenza, trivalent, tngykexbor27/18/2024Moderna SARS-CoV-2 Yuqiavwlgiy34/19/2021Pfizer Purple Cap SARS-CoV-2 Tebhfpttbrk63/19/2021Pneumococcal Conjugate PCV 13010/05/2017 Pneumococcal Polysaccharide FXEX736405/26/2019RSV IGIV08/24/2023Zoster, Dotyajzxrgi88/09/2024,05/11/2023 Family History Medical HistoryRelationNameCommentsDementiaFatherStrokeFatherDementiaMother StrokeMotherRelationNameStatusCommentsDaughterAlive2 daughtersFatherDeceased MotherDeceasedSister2 sistersSonAlive1 sons Social History Tobacco UseTypesPacks/DayYears UsedDateSmoking Tobacco: CzycniXogakluodx208.9 Started: 1991Smokeless Tobacco: Never Tobacco Cessation:Counseling Given: [...] DrinkingNot on file03/03/2024HQ-2 AnswerDate RecordedPatient Health Questionnaire-2 Ycikr515Sex and Gender InformationValueDate RecordedSex Assigned at BirthNot on fileLegal SexMale 07/29/2022 8:15 PM EDTGender IdentityNot on fileSexual OrientationNot on file 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 on fileNot on fileNot on file Last Filed Vital Signs Vital SignReadingTime TakenCommentsBlood Hvutpubo656/7003/21/2025 8:56 AM EST Edoha083803/21/2025 8:56 AM ESTTemperature--Respiratory Rate--Oxygen Pwixvruffq78% 03/21/2025 8:56 AM ESTInhaled Oxygen Concentration--Isbuyf577 kg (229 lb) 03/21/2025 8:56 AM FILSczexj021.3 cm (5' 11 )03/21/2025 8:56 AM ESTBody Mass Index31.9403/21/2025 8:56 AM EST Plan of Treatment DateTypeDepartmentCare Team (Latest Contact Info)Xygyietnddu84/08/2026 10:00 AM EDTOffice Visit [facility] [place] [facility] [address] [facility] [address] [place] [phone] Justo Jones DO [address] [facility] [address] [place] [address] Health MaintenanceDue DateLast DoneCommentsCT Hvdxfccadjqy91/07/1951FIT 1950FOBT1950 2365Hbyjjdhaoxgkx34/07/1951FIT-DNALung Cancer Screening Shared Decision Wqbfnp9905/17/2025Postponed from 1950 (Other System Reasons)Medicare Annual Wellness (AWV)6009/07/2024 Qbjnzxvzqtu27, 12/09/2017Colorectal Cancer Javeviwcj59/26/2034 Pneumococcal Vaccine: 65+ PxqhkCqamidtzw33/10/2020, 10/05/2017COVID-19 Vaccine Lgfnwzdaumxb08/19/2023, 08/27/2021, 03/10/2021, Additional history exists Influenza IxumgxpNnucylsto38/23/2025, 03/03/2024, 05/04/2023, Additional history exists Procedures Procedure NamePriorityDate/TimeAssociated DiagnosisCommentsALL BASIC METABOLIC ZPWMKEuihrnz75/10/2025 8:40 AM EST CCF IPHBDdtzraw15/10/2025 8:40 AM EST SRMCOH PROTHROMBIN TIME INR W/O LSKHQezlboq28/10/2025 8:40 AM EST ALL CBC WITH AUTO DVAFXsrjgbt46/10/2025 8:40 AM EST XR ABDOMEN 1 TYDDByhuyrf38/29/2025 1:31 PM EDTPSA, YOYXFIhekenc83/29/2025 10:05 AM EDTHM SNHTLSIJINMPcokiat60/26/2024 3:39 PM EDTfrom Last 3 Months or Most Recently Relevant to Health Maintenance Results * (ABNORMAL) SRMCOH PROTHROMBIN TIME INR W/O COUM (03/26/2025 8:40 AM EST) ComponentValueRef RangeTest MethodAnalysis TimePerformed AtPathologist SignaturePROTHROMBIN TIME11.9(H)9.0 - 11.6 secTBHTBH INR1.14TBHComment: DESIRED INR: 2.0-3.0 CONDITIONS NOT LISTED BELOW 2.5-3.5 FOR PROSTHETIC HEART VALVE REPLACEMENT 2.5-3.5 RECURRENT THROMBOSIS Specimen (Source)Anatomical Location / LateralityCollection Method / Volume Collection TimeReceived Time03/26/2025 8:40 AM EST11/02/2025 8:43 AM EST Narrative CLINISYIN - 03/26/2025 9:12 AM EST Authorizing ProviderResult TypeResult StatusGeneric External Data Provider CLINISYNCFinal ResultPerforming OrganizationAddressCity/State/ZIP CodePhone Number [facility] * [facility] APTT (03/26/2025 8:40 AM EST)ComponentValueRef RangeTest MethodAnalysis TimePerformed AtPathologist SignaturePARTIAL THROMBOPLASTIN TIME33.722.3 - 36.2 secTBHSpecimen (Source)Anatomical Location / LateralityCollection Method / VolumeCollection TimeReceived Time03/26/2025 8:40 AM EST03/26/2025 8:43 AM EST Narrative CLINISYIN - 03/26/2025 9:12 AM EST Authorizing ProviderResult TypeResult StatusGeneric External Data Provider CLINISYNCFinal ResultPerforming OrganizationAddressCity/State/ZIP CodePhone Number [facility] * (ABNORMAL) ALL CBC WITH AUTO DIFF (03/26/2025 8:40 AM EST)ComponentValueRef RangeTest MethodAnalysis TimePerformed AtPathologist SignatureTBH WBC5.64.0 - 11.0 10 3/uLTBHTBH RBC4.61(L)4.70 - 6.10 10 6/uLTBHTBH HGB14.514.0 - 18.0 g/dL TBHTBH HCT41.5(L)42.0 - 54.0 %TBHTBH MCV90.080.0 - 94.0 fLTBHTBH MCH31.525.9 - 34.0 pgTBHTBH MCHC34.929.9 - 35.2 g/dLTBHTBH RDW12.911.0 - 15.0 %TBHTBH KET692 150 - 450 10 3/uLTBHTBH MPV9.0(L)9.5 - 13.5 fLTBHNEUTROPHILS PERCENT AUTO60.8 43.0 - 75.0 %TBHLYMPHOCYTES PERCENT AUTO25.720.5 - 60.0 %TBHMONOCYTES PERCENT AUTO8.01.7 - 12.0 %TBHTBH EO %4.60.9 - 7.0 %TBHBASOPHILS PERCENT AUTO0.50.2 - 2.0 %TBHIMMATURE GRANULOCYTES PCT AUTO0.40.0 - 0.5 %TBHNEUTROPHILS ABSOLUTE AUTO3.41.4 - 6.5 10 3/uLTBHLYMPHOCYTES ABSOLUTE AUTO1.41.2 - 3.8 10 3/uLTBH MONOCYTES ABSOLUTE AUTO0.50.3 - 0.8 10 3/uLTBHTBH EO #0.30.0 - 0.7 10 3/uLTBH BASOPHILS ABSOLUTE AUTO0.00.0 - 0.1 10 3/uLTBHIMMATURE GRANULOCYTES ABS AUTO 0.020.00 - 0.03 10 3/uLTBHSpecimen (Source)Anatomical Location / Laterality Collection Method / VolumeCollection TimeReceived Time03/26/2025 8:40 AM EST 03/26/2025 8:43 AM EST Narrative CLINISYNC - 03/26/2025 8:49 AM EST Authorizing ProviderResult TypeResult StatusGeneric External Data Provider CLINISYNCFinal ResultPerforming OrganizationAddressCity/State/ZIP CodePhone Number [facility] * (ABNORMAL) ALL BASIC METABOLIC PANEL (03/26/2025 8:40 AM EST)ComponentValueRef RangeTest MethodAnalysis TimePerformed AtPathologist SycpycmmwBNEHJI388118 - 145 mmol/LTBHPOTASSIUM4.23.5 - 5.1 mmol/GQOENTIQLGJQ72259 - 107 mmol/LTBH CARBON GTJVKTY42.621.0 - 32.0 mmol/LTBHANION GAP11.3FHNHZRKZHH285(H)74 - 106 mg/dLTBHBLOOD UREA MOEIHFVU92.0(H)7.0 - 18.0 mg/dLTBHCREATININE0.910.70 - 1.30 mg/dLTBHTBH EGFR-AF ARMENIAN>60>=60 mL/min/1.73m 2TBHTBH EGFR-NON AF ARMENIAN >60>=60 mL/min/1.73m 2TBHBUN CREATININE RATIO20.7YHRDXBAHNS5.68.5 - 10.1 mg/dL TBHSpecimen (Source)Anatomical Location / LateralityCollection Method / Volume Collection TimeReceived Time03/26/2025 8:40 AM EST03/26/2025 8:43 AM EST Narrative CLINISYNC - 03/26/2025 9:53 AM EST Authorizing ProviderResult TypeResult StatusGeneric External Data Provider CLINISYNCFinal ResultPerforming OrganizationAddressCity/State/ZIP CodePhone Number CLINISYNC TBH * XR abdomen 1 view (02/12/2025 1:31 [...] (Latest Code Status on File) Date ActivatedDate [facility]09/03/2023 10:34 AM Care Teams Team MemberRelationshipSpecialtyStart DateEnd Date Justo Jones DO [address] [address] PCP - GeneralInternal Medicine11/24/22 Clive Chun MD [address] [facility] [address] [place] [address] Referring PhysicianCardiology08/27/23 Erickson Mohan MD [address] [place] [address] Referring PhysicianUrology08/27/23
--- OUTSIDE RECORDS SUMMARY | 2025-04-05 06:56 | XMS_ITS | Clinical Summary ---
Author Organization [facility] Address [address] [place] [address] Care Team Providers Care Technical Planner Name Role Phone Keny Carney DO Primary Care Provider [phone] Allergies No known active allergies Medications MedicationSigDispense QuantityRefillsLast FilledStart DateEnd DateStatus traMADol (ULTRAM) 50 mg tablet Take 1 tablet (50 mg total) by mouth every 6 (six) hours as needed for pain. 15 tablet ctive Social History Tobacco UseTypesPacks/DayYears UsedDateSmoking Tobacco: FormerAlcohol Use Standard Drinks/WeekCommentsYes0 (1 standard drink = 0.6 oz pure alcohol) occassionallySex and Gender InformationValueDate RecordedSex Assigned at Not on fileLegal EiuIqhq9009/08/2013 11:12 AM EDTGender IdentityNot on fileSexual OrientationNot on file Last Filed Vital Signs Vital SignReadingTime TakenCommentsBlood Ukvannqh053/7710 1:43 AM EDT Ofdlg181402/27/2015 1:43 AM EXKGjgqobksemk28.7 ??C (98.1 ??F)02/26/2015 10:43 PM EDTRespiratory Jhcc8621 1:43 AM EDTOxygen Xijslpmigc38%02/27/2015 1:43 AM EDTInhaled Oxygen Concentration--Cnnmvj13.1 kg (218 lb 6.4 oz)02/26/2015 10:43 PM UVOOczvdu118.3 cm (5' 11 )02/26/2015 10:43 PM EDTBody Mass Index30.46 02/26/2015 10:43 PM EDT Plan of Treatment Not on file Insurance Care Teams Team MemberRelationshipSpecialtyStart DateEnd Date Keny Carney DO [address] [place] [phone] PCP - Zjnhsew65/2/12
--- OUTSIDE RECORDS SUMMARY | 2025-04-05 06:56 | XMS_ITS | Clinical Summary ---
Author Organization [facility] Address [address] [place] [address] Phone Care Team Providers Care Solid Waste Management Engineer Name Role Phone Justo Jones DO [...] ProblemNoted DateDiagnosed DateOther sleep apnea01/11/2025Never smoked tobacco 01/10/20240517Qviiohtqodzcrp71/17/2023Mild CAD04/02/2023Obesity (BMI 30-39.9) 04/02/20234546Drklwnstpdel83/17/2023ersistent atrial hanjqajvkvcu46/17/2023Sinus iikgixxvhju75/17/2023Long term current use of anticoagulant hgbyhtm4604/02/2023 Essential sfxeunklwrwi95/17/2023 Resolved Problems ProblemNoted DateDiagnosed DateResolved DateEchocardiogram /17/2023 07/12/2024 Encounters DateTypeDepartmentCare PoyjLqfeocxnqhb73/11/2025Telephone [address] [address] Marry FairchildferHEIDI POC01/11/2025 3:00 PM EDTOffice Visit [address] [phone] Clive Chun MD Persistent atrial fibrillation (Multi) (Primary Dx); Essential hypertension; Sinus bradycardia; 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; Palpitations; Mild CAD; Mixed hyperlipidemia; Obesity (BMI 30-39.9); Never smoked tobacco; Other sleep apnea Discharge Disposition: Home01/11/2025Travelfrom Last 3 Months Social History Tobacco UseTypesPacks/DayYears UsedDateSmoking Tobacco: FormerCigarettesQuit: 2004Smokeless Tobacco: Never Tobacco Cessation:Counseling Given: Not Answered Alcohol UseStandard Drinks/WeekCommentsYes0 (1 standard drink = 0.6 oz pure alcohol)socialSex and Gender InformationValueDate RecordedSex Assigned at Not on fileLegal XzvIoic48/26/2022 8:45 PM ESTGender IdentityNot on fileSexual OrientationNot on file Last Filed Vital Signs Vital SignReadingTime TakenCommentsBlood Vkxzquhe109/7008 2:48 PM EDT Gmwhd591401/11/2025 2:48 PM EDTTemperature--Respiratory Rate--Oxygen Saturation-- Inhaled Oxygen Concentration--Udjafi249 kg (226 lb)01/11/2025 2:48 PM EDTHeight 180.3 cm (5' 11 )01/11/2025 2:48 PM EDTBody Mass Index31.52001/11/2025 2:48 PM EDT Plan of Treatment DateTypeDepartmentCare Team (Latest Contact Info)Wvevgksskxo76/14/2026 3:20 PM EDTOffice Visit [address] [address] Clive Chun MD [address] [place] [address] [address] [place] [address] Health MaintenanceDue DateLast DoneCommentsCT Nyrqvgqmgqey07/07/1951FIT-DNA (Cologuard)1950FIT1950Medicare Annual Wellness Visit (AWV)1950 Bmksgrjknzdcz13/07/1951MMR Vaccines (1 of 1 - Standard series)2Diabetes Sigxqlszy70/07/1969Hepatitis C Mdvgqcdki29/07/1969DTaP/Tdap/Td Vaccines (1 - Tdap)1972Abdominal Aortic Aneurysm (AAA) Ikqhvvdpp19/07/2016Influenza Vaccine (#1)/, 05/04/2023, 05/25/2022, Additional history existsCOVID-19 Vaccine ( season)/, 05/25/2022, 08/27/2021, Additional history existsLipid Panel/4Colonoscopy /, 12/09/2017Colorectal Cancer Hlzryrodr05/26/2034Hepatitis B IixbkqmaTrseihari19/31/2001, 04/19/2000, 03/12/2000Pneumococcal VaccineCompleted 03/26/2020, 09/06/2018, 10/05/2017RSV High Risk: (Elderly (60+) or Population)Vnfilbvux00/09/2024Zoster CpfgfhhvZsmryddjs29/09/2024, 05/11/2023HIB VaccinesAged OutNo longer eligible based on [...] nonspecific ST-T changes Authorizing ProviderResult TypeResult StatusMourhaf Adiel MDECG ORDERABLES Final ResultPerforming OrganizationAddressCity/State/ZIP CodePhone Number CPACS from Last 3 Months Insurance Care Teams Team MemberRelationshipSpecialtyStart DateEnd Date Justo Jones DO [address] [address] PCP - GeneralInternal Medicine01/10/24
--- OUTSIDE RECORDS SUMMARY | 2025-04-05 06:56 | XMS_ITS | Encounter Summary ---
Author Organization [facility] Address [address] [place] [address] Care Team Providers Care First Beater Name Role Phone Justo Jones DO Primary Care Provider + [phone] Clive Chun MD Unavailable [phone] Erickson Mohan MD Unavailable [phone] Encounter Details DateTypeDepartmentCare Team (Latest Contact Info)Tlrwvctmnss27/10/2025Clinisync Result Encounter [facility] External Department Unsolicited Provider, Generic External Data Social History Tobacco UseTypesPacks/DayYears UsedDateSmoking Tobacco: DcxzqgMnuidpyfqh644.9 Started: 1991Smokeless Tobacco: Never Comments:Heavy cigarette smo [...] DrinkingNot on file03/03/2024HQ-2 AnswerDate RecordedPatient Health Questionnaire-2 Iqzyq061Sex and Gender InformationValueDate RecordedSex Assigned at BirthNot on fileLegal SexMale 07/29/2022 8:15 PM EDTGender IdentityNot on fileSexual OrientationNot on file 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 on fileNot on fileNot on filedocumented as of this encounter Plan of Treatment DateTypeDepartmentCare Team (Latest Contact Info)Pkdvpgbxvug08/08/2026 10:00 AM EDTOffice Visit [facility] [place] [facility] [address] [place] [phone] Justo Jones DO [address] [place] [address] documented as of this encounter Procedures Procedure NamePriorityDate/TimeAssociated DiagnosisCommentsSRMCOH PROTHROMBIN TIME INR W/O SQRJWapnrnr95/10/2025 8:40 AM EST CCF MHTDOieuxoo45/10/2025 8:40 AM EST ALL CBC WITH AUTO WJTBJxxnbnd50/10/2025 8:40 AM EST ALL BASIC METABOLIC FROVWMhxdjxe31/10/2025 8:40 AM EST documented in this encounter Results * (ABNORMAL) ALL BASIC METABOLIC PANEL (03/26/2025 8:40 AM EST)ComponentValueRef RangeTest MethodAnalysis TimePerformed AtPathologist PuwdjjmaiMMNEZW897164 - 145 mmol/LTBHPOTASSIUM4.23.5 - 5.1 mmol/YHLGSBLIJOYH89965 - 107 mmol/LTBH CARBON ZQFIRME91.621.0 - 32.0 mmol/LTBHANION GAP11.3SSXRUBHZYR032(H)74 - 106 mg/dLTBHBLOOD UREA RVQMGWAW62.0(H)7.0 - 18.0 mg/dLTBHCREATININE0.910.70 - 1.30 mg/dLTBHTBH EGFR-AF LITHUANIAN>60>=60 mL/min/1.73m 2TBHTBH EGFR-NON AF LITHUANIAN >60>=60 mL/min/1.73m 2TBHBUN CREATININE RATIO20.8EQWZTAJDYQ2.68.5 - 10.1 mg/dL TBHSpecimen (Source)Anatomical Location / LateralityCollection Method / Volume Collection TimeReceived Time03/26/2025 8:40 AM EST11/02/2025 8:43 AM EST Narrative CLINISYID - 03/26/2025 9:53 AM EST Authorizing ProviderResult TypeResult StatusGeneric External Data Provider CLINISYNCFinal ResultPerforming OrganizationAddressCity/State/ZIP CodePhone Number [facility] * [facility] APTT (03/26/2025 8:40 AM EST)ComponentValueRef RangeTest MethodAnalysis TimePerformed AtPathologist SignaturePARTIAL THROMBOPLASTIN TIME33.722.3 - 36.2 secTBHSpecimen (Source)Anatomical Location / LateralityCollection Method / VolumeCollection TimeReceived Time03/26/2025 8:40 AM EST03/26/2025 8:43 AM EST Narrative CLINISYNC - 03/26/2025 9:12 AM EST Authorizing ProviderResult TypeResult StatusGeneric External Data Provider CLINISYNCFinal ResultPerforming OrganizationAddressCity/State/ZIP CodePhone Number [facility] * (ABNORMAL) SRMCOH PROTHROMBIN TIME INR W/O COUM (03/26/2025 8:40 AM EST) ComponentValueRef RangeTest MethodAnalysis TimePerformed AtPathologist SignaturePROTHROMBIN TIME11.9(H)9.0 - 11.6 secTTB INR1.14TBHComment: DESIRED INR: 2.0-3.0 CONDITIONS NOT LISTED BELOW 2.5-3.5 FOR PROSTHETIC HEART VALVE REPLACEMENT 2.5-3.5 RECURRENT THROMBOSIS Specimen (Source)Anatomical Location / LateralityCollection Method / Volume Collection TimeReceived Time03/26/2025 8:40 AM EST03/26/2025 8:43 AM EST Narrative CLINISYID - 03/26/2025 9:12 AM EST Authorizing ProviderResult TypeResult StatusGeneric External Data Provider CLINISYNCFinal ResultPerforming OrganizationAddressty/State/ZIP CodePhone Number [facility] * (ABNORMAL) ALL CBC WITH AUTO DIFF (03/26/2025 8:40 AM EST)ComponentValueRef RangeTest MethodAnalysis TimePerformed AtPathologist SignatureTBH WBC5.64.0 - 11.0 10 3/uLTBHTBH RBC4.61(L)4.70 - 6.10 10 6/uLTBHTBH HGB14.514.0 - 18.0 g/dL TBHTBH HCT41.5(L)42.0 - 54.0 %TBHTBH MCV90.080.0 - 94.0 fLTBHTBH MCH31.525.9 - 34.0 pgTBHTBH MCHC34.929.9 - 35.2 g/dLTBHTBH RDW12.911.0 - 15.0 %TBHTBH DXD896 150 - 450 10 3/uLTBHTBH MPV9.0(L)9.5 - [...] Provider CLINISYNCFinal ResultPerforming OrganizationAddressCity/State/ZIP CodePhone Number CLINISYNC [facility] documented in this encounter Visit Diagnoses Not on filedocumented in this encounter Additional Health Concerns AssessmentNoted TimePHQ-9 Depression Total Score: 9:00 AM EDT documented as of this encounter Care Teams Team MemberRelationshipSpecialtyStart DateEnd Date Justo Jones DO [address] [place] [address] PCP - GeneralInternal Medicine11/24/22 Clive Chun MD [address] [facility] [address] [place] [address] Referring PhysicianCardiology08/27/23 Erickson Mohan MD [address] [place] [address] Referring PhysicianUrology08/27/23documented as of this encounter
--- OUTSIDE RECORDS SUMMARY | 2025-04-05 06:56 | XMS_ITS | Clinical Summary ---
Author Organization [facility] Address [address] [place] [address] Care Team Providers Care Ophthalmic Surgical Assistant Name Role Phone Justo Jones Primary Care [...] RecordedNational Score (1-100), lower number is lower bnxr591512/24/2023State Score (1-10), lower number is lower ijnb086 Data from: https://www.neighborhoodatlas.medicine.[facility].edu/. Last address used for rhdwuxxjwpz[address]12/24/2023Sex and Gender InformationValue Date RecordedSex Assigned at BirthNot on fileLegal WlgIphf5210/27/2022 11:02 AM EDTGender IdentityNot on fileSexual OrientationNot on file Plan of Treatment Health MaintenanceDue DateLast DoneCommentsAnxiety Aqrqjzspy91/07/1969Depression Wbhcwaviu30/07/1969Hepatitis C Wziyroznn39/07/1969DTaP,Tdap,Td Vaccine (1 - Tdap)1969Lipid Ivvnkbnne29/07/1986CT Jhpxdqsekizx67/07/1996Colonoscopy 10/22/1995Diabetes Foihynxeh81/07/1996Fecal Occult Blood10/22/1995Sigmoidoscopy 10/22/1995Cologuard (FIT-DNA)Colorectal Cancer Screening 10/25/2020dvance Directive Sqcrndzlid55/01/2025Medicare Advantage Annual Wellness Visit05/17/2024ovid-19 Vaccine ( season)2025 05/04/2023, 05/25/2022, 08/27/2021, Additional history existsInfluenza Vaccine (#1)512/, 05/25/2022, 04/16/2021, Additional history exists Pneumococcal Vaccine: 50+Adxicyjek20/10/2020, 09/06/2018, 10/05/2017RSV Vaccine Fzmulecuy90/09/2024Shingrix NaayixgHapqbvihh46/09/2024, 05/11/2023 Insurance Care Teams Team MemberRelationshipSpecialtyStart DateEnd Date Justo Jones DO [address] [facility] [address] [place] [address] PCP - GeneralInternal Medicine12/21/23
[2025-04-05] MEDS: CEFAZOLIN SODIUM 2 GM/50 ML D5W PREMIX IV (07:59)
--- NOTE | 2025-04-05 09:14 | P.URON_ITS ---
Urology Surgery Operative Note Operative Note Procedure Date: 04/05/25 Time Out Performed: yes Pre-op Diagnosis: Left nephrolithiasis Post-op Diagnosis: same as pre-op Procedures performed: 1. Cystoscopy. 2. Left ureteroscopy. 3. Left pyeloscopy. 4. Thulium laser lithotripsy of large left renal calculus. 5. Placement of 6 [place] variable length left ureteral stent Anesthesia: [place] Primary Surgeon: Erickson Mohan Complications: None Estimated blood loss (mL): 5 Findings: Large left upper pole calculus Specimens: None Drains: 6 [place] variable length left ureteral stent Indications for Procedures: This gentleman has a 10 to 11 mm left upper pole stone. He now presents for definitive ureteroscopic stone manipulation and possible left stent placement. He has signed an informed consent after risks were explained. Detailed description of Procedure: The patient was brought to the operating room and placed on the operating room table in the supine position. SCDs were placed on the lower extremities and turned on and functioning during the entire case. Timeout was done by all partie s in the room. We all agreed upon the patient's identification and the planned procedures for this patient. Genn. anesthesia was then administered. The patient was then repositioned into the modified dorsal lithotomy position. All pressure points were satisfactorily padded. Genitalia were sterilely prepped and draped in usual fashion. I started by passing a 22 [place] Olympus cystoscope per urethra and into the bladder. Anterior urethra revealed minor bulbar narrowing. Prostatic urethra revealed moderate regrowth especially from the right side. Bladder neck was open. Panendoscopy in the bladder showed no evidence of stones tumors or lesions. Moderate to high-grade trabeculation with a few diverticuli was seen. While using fluoroscopy I could clearly see this sizable stone in the left upper pole. I passed a Glidewire through the scope and into the left ureter and up to the kidney. Scope was removed. 10/12 [place] access sheath was passed over the wire up to the L5 position. Stylette and wire were removed. A flexible ureteroscope was passed through the sheath and into the ureter. I then ascended up the ureter and then went into the kidney. I could immediately see this large stone. I scoped into all of the calyces in the upper mid and lower poles and found no evidence of any other stones. There was a few Shamar's plaques in the upper pole calyces. I then passed a 270 Angstrom laser fiber through the scope and made contact with the stone. Using the thulium laser at 7 W on the dusting mode I started fragmenting the stone. We increased up to 10 W and then ultimately 15 W for the majority of the case. This stone was dusted 100%. No evidence of any remaining fragments was noted. Copious amounts of debris and sand were noted within the kidney. Fluoroscopically there was no stone visible. The laser fiber was removed and I then slid a Glidewire through the scope into the kidney and removed the scope and access sheath. Cystoscope was backloaded over the wire and passed into the bladder and I then slid a 6 [place] variable length stent over the wire up to the kidney. The wire was removed and there were good curls in the kidney and in the bladder. The bladder was drained of its contents and the scope was then removed. The anesthetic was then reversed. He was then transferred to a [facility] bed in stable condition.
[2025-04-05] MEDS: SOLIFENACIN SUCCINATE 10 MG TABLET PO (09:24)
== END 2025-04-05 10:25 | disposition home or self-care (01) ==
LOC: SURGOUT 06:53
PROVIDERS: PCP Internal Medicine; Visit Provider Urology
PROC: (CPT 52356; principal; 2025-04-05 08:00)
DX: N20.0 Calculus of kidney (principal); N32.89 Other specified disorders of bladder; I48.91 Unspecified atrial fibrillation; Z87.442 Personal history of urinary calculi; R01.1 Cardiac murmur, unspecified; Z79.01 Long term (current) use of anticoagulants; Z87.891 Personal history of nicotine dependence; E78.5 Hyperlipidemia, unspecified; N40.0 Benign prostatic hyperplasia without lower urinary tract symptoms; M19.90 Unspecified osteoarthritis, unspecified site
CPT/HCPCS: 52356; 36415; 76000; J0131; J0690; J1100; J1885; J2250; J2371; J2405; J2704; J3010